=== PATIENT | female | born 1940 | race Caucasian/White ===

== ENCOUNTER 2022-08-28 08:10 | Inpatient (IN) ==
[2022-08-28] MEDS ORDERED: Morphine 4 MG/ML VIAL (1 ml) IV ONE (09:29)
[2022-08-28] MEDS ORDERED: Lactated Ringers 1000 ml BAG 1,000 ML IV ONE (09:29)
[2022-08-28] MEDS ORDERED: Ondansetron 4 mg VIAL 2 MG/ML 2 ml VIAL IV ONE (09:29)
[2022-08-28] MEDS ORDERED: Iodixanol (CONTRAST) 320 MG/ML 100 ML SDV IV ONE (10:31)
[2022-08-28 11:20] LABS: ABS Lymphocytes 0.9 10^3/ul (1.0-4.8); ABS Monocytes 0.8 10^3/ul (0-0.8); ABS Neutrophils 6.4 10^3/ul (1.5-7.7); Eosinophil % 0.4 %; Hematocrit 33 % (35-47); Hemoglobin 10.9 g/dL (12.0-16.0); Lymphocyte % 11.5 %; Mean Corpuscular HGB Conc 33 g/dL (31-36); Mean Corpuscular Hemoglobin 31 pg (27-31); Mean Corpuscular Volume 93 fL (80-97); Mean Platelet Volume 7.5 fL (7.4-10.4); Platelet Count 213 10^3/uL (150-450); Red Blood Count 3.52 10^6 /uL (3.70-4.87); Red Cell Distribution Width 14 % (10-15); White Blood Count 8.1 10^3/uL (3.5-10.8)
[2022-08-28 11:32] LABS: INR 1.17 (0.88-1.18)
[2022-08-28 12:11] LABS: Albumin 3.6 g/dL (3.2-5.2); Albumin/Globulin Ratio 1.6 (1-3); Calcium 8.9 mg/dL (8.6-10.3); Globulin 2.2 g/dL (2-4); Potassium 4.2 mmol/L (3.5-5.0); Total Bilirubin 0.5 mg/dL (0.2-1.0); Total Protein 5.8 g/dL (6.4-8.9); eGFR CKD-EPI 84.5 (>60)
[2022-08-28 13:41] LABS: C Reactive Protein 17.09 mg/L (<8.01); HDL Cholesterol 60.9 mg/dL
[2022-08-28] MEDS ORDERED: Albuterol HFA INHALER 8 gm MDI INH PRN (13:50)
[2022-08-28] MEDS ORDERED: oxyCODONE/Acetamin 5/325 mg TAB PO PRN (13:50)
[2022-08-28 13:51] LABS: TSH Ultra Thyroid Stim Horm 1.59 mcIU/mL (0.34-5.60)
[2022-08-28] MEDS ORDERED: HYDROmorphone 1 MG/1 ML SYRINGE IV SLOW PU ONE (13:51)
[2022-08-28] MEDS ORDERED: DULoxetine DR 60 mg CAP PO SCH (14:00)
[2022-08-28] MEDS ORDERED: Lorazepam PYXIS KEY PRN (14:08)
[2022-08-28] MEDS ORDERED: LORazepam 2 mg VIAL 1 ml IV PUSH ONE (14:08)
[2022-08-28] MEDS ORDERED: Furosemide 20 mg/2 ml IV VIAL IV SLOW PU ONE (15:36)
[2022-08-28] MEDS ORDERED: fentaNYL 100 mcg/2 ml 50 MCG/ML VIAL IV SLOW PU PRN ×2 (15:39→20:36)
[2022-08-28 16:32] LABS: PCO2 Arterial 55 mmHg (35-45); PO2 Arterial 142 mmHg (80-100)
[2022-08-28 17:30] LABS: Activated Partial Thrombo Time 29.8 seconds (26.0-38.0)
[2022-08-28] MEDS ORDERED: Succinylcholine 200 mg VIAL 20 mg/ml 10 ml VIAL (200 mg) ONE (17:48)
[2022-08-28] MEDS ORDERED: Rocuronium 50 mg VIAL 10 mg/ml 5 ml VIAL (50 mg) ONE (17:48)
[2022-08-28] MEDS ORDERED: Norepinephrine 16MCG/ML BAGD5W 4,000 MCG/250 ML BAG IV ONE (17:48)
[2022-08-28] MEDS ORDERED: Propofol 10 mg/ml 100 ML BTL 100 ML ONE (17:49)
[2022-08-28] MEDS ORDERED: Midazolam 10 mg/10 ml VIAL 1 mg/ml 10 ml VIAL (10 mg) ONE (18:24)
[2022-08-28] MEDS ORDERED: Etomidate 40 mg/20 ml (2 MG/ML) 20 ml VIAL (40 mg) ONE (18:24)
[2022-08-28] MEDS ORDERED: fentaNYL 250 mcg/5 ml 50 MCG/ML 5 ml VIAL (250 MCG) ONE (18:24)
[2022-08-28] MEDS: Propofol 10 mg/ml 100 ML BTL 100 ML IV SCH ×2 (18:35→21:48)
[2022-08-28] MEDS: Norepinephrine 16MCG/ML BAGD5W 4,000 MCG/250 ML BAG IV SCH (18:35)
[2022-08-28] MEDS ORDERED: Piperacillin/Tazobac ADVAN 3.375 GM in NS 0.9% 100 ml BAG 100 ML IV ONE (18:50)
[2022-08-28] MEDS ORDERED: Zosyn per Pharmacy NOTE FOLLOW UP SCH (19:00)
[2022-08-28] MEDS: Midazolam 2 mg/2 ml VIAL 1 mg/ml 2 ml VIAL (2 mg) IV SLOW PU PRN ×2 (19:33→23:59)
[2022-08-28 20:28] LABS: Hematocrit 33 % (35-47); Hemoglobin 10.4 g/dL (12.0-16.0)
[2022-08-28] MEDS ORDERED: fentaNYL 100 mcg/2 ml 50 MCG/ML VIAL ONE (21:01)
[2022-08-28] MEDS ORDERED: Heparin 5000 UNITS/ML 1 mL VIAL SUBCUT SCH (22:00)
[2022-08-28 22:07] LABS: ABS Eosinophils 0.1 10^3/ul (0-0.6); ABS Lymphocytes 1.1 10^3/ul (1.0-4.8); ABS Monocytes 0.8 10^3/ul (0-0.8); ABS Neutrophils 5.5 10^3/ul (1.5-7.7); Hematocrit 32 % (35-47); Hemoglobin 10.3 g/dL (12.0-16.0); Lymphocyte % 14.8 %; Mean Corpuscular HGB Conc 32 g/dL (31-36); Mean Corpuscular Hemoglobin 31 pg (27-31); Mean Corpuscular Volume 96 fL (80-97); Mean Platelet Volume 7.7 fL (7.4-10.4); Platelet Count 196 10^3/uL (150-450); Red Blood Count 3.34 10^6 /uL (3.70-4.87); Red Cell Distribution Width 15 % (10-15); White Blood Count 7.5 10^3/uL (3.5-10.8)
[2022-08-28 22:15] LABS: Activated Partial Thrombo Time 27.7 seconds (26.0-38.0); INR 1.17 (0.88-1.18)
[2022-08-28 22:33] LABS: Urine Benzodiazepine Screen Presumptive Positive (None Detect); Urine Cannabinoids Screen Presumptive Positive (None Detect); Urine Opiates Screen Presumptive Positive (None Detect)
[2022-08-28 22:44] LABS: eGFR CKD-EPI 45.3 (>60)
[2022-08-28] MEDS: fentaNYL INFUSION 50 mcg/mL VL 2,500 MCG/50 ML VIAL IV SCH (23:04)
[2022-08-28] MEDS: Heparin 5000 UNITS/ML 1 mL VIAL SUBCUT SCH (23:09)
[2022-08-28 23:10] LABS: PCO2 Arterial 51 mmHg (35-45); PO2 Arterial 104 mmHg (80-100)
[2022-08-28] MEDS ORDERED: Midazolam 2 mg/2 ml VIAL 1 mg/ml 2 ml VIAL (2 mg) ONE (23:58)
[2022-08-29] MEDS: Propofol 10 mg/ml 100 ML BTL 100 ML IV SCH ×7 (00:20→22:36)
[2022-08-29] MEDS: ZOSYN 3.375 GM Q8H per EXTENDED INFUSION IV SCH ×4 (00:20→23:43)
[2022-08-29] MEDS: Norepinephrine 16MCG/ML BAGD5W 4,000 MCG/250 ML BAG IV SCH (00:43)
[2022-08-29 04:57] LABS: ABS Eosinophils 0.2 10^3/ul (0-0.6); ABS Lymphocytes 1.3 10^3/ul (1.0-4.8); ABS Monocytes 0.7 10^3/ul (0-0.8); ABS Neutrophils 4.4 10^3/ul (1.5-7.7); Eosinophil % 2.9 %; Hematocrit 31 % (35-47); Hemoglobin 9.9 g/dL (12.0-16.0); Lymphocyte % 19.4 %; Mean Corpuscular HGB Conc 32 g/dL (31-36); Mean Corpuscular Hemoglobin 31 pg (27-31); Mean Corpuscular Volume 96 fL (80-97); Mean Platelet Volume 7.9 fL (7.4-10.4); Platelet Count 179 10^3/uL (150-450); Red Blood Count 3.22 10^6 /uL (3.70-4.87); Red Cell Distribution Width 15 % (10-15); White Blood Count 6.5 10^3/uL (3.5-10.8)
[2022-08-29 05:20] LABS: Urine Appearance Cloudy; Urine Bilirubin 1+ (Small) (Negative); Urine Blood Trace (Intact) (Negative); Urine Color Yellow; Urine Glucose Negative (Negative); Urine Ketones Negative (Negative); Urine Nitrite Negative (Negative); Urine Protein Trace (Negative); Urine Specific Gravity 1.025 (1.005-1.030); Urine Urobilinogen 1.0 (Negative) (Negative); Urine pH 5.5 (5.0-9.0)
[2022-08-29 05:28] LABS: Urine Bacteria 1+ (Absent); Urine Red Blood Cell 3+(>10/hpf) (Absent); Urine Squamous Epithelial Cell Present (Absent); Urine White Blood Cell 3+(>20/hpf) (Absent)
[2022-08-29 05:42] LABS: Calcium 8.6 mg/dL (8.6-10.3); Phosphorus 3.8 mg/dL (2.5-5.0); Potassium 3.5 mmol/L (3.5-5.0); eGFR CKD-EPI 49.7 (>60)
[2022-08-29] MEDS: Heparin 5000 UNITS/ML 1 mL VIAL SUBCUT SCH ×3 (05:44→21:05)
[2022-08-29] MEDS: Chlorhexidine MOUTHWASH 0.12% 15 ML UDC TOPICAL SCH ×5 (05:44→21:05)
[2022-08-29] MEDS: Pantoprazole VIAL 40 MG VIAL IV SCH (08:09)
[2022-08-29 10:06] LABS: Ferritin 14.6 ng/mL (11-307)
[2022-08-29 23:42] LABS: Calcium 8.4 mg/dL (8.6-10.3); Potassium 3.9 mmol/L (3.5-5.0); eGFR CKD-EPI 59.8 (>60)
[2022-08-30] MEDS: Chlorhexidine MOUTHWASH 0.12% 15 ML UDC TOPICAL SCH ×6 (02:18→22:21)
[2022-08-30] MEDS: Propofol 10 mg/ml 100 ML BTL 100 ML IV SCH ×5 (03:12→19:48)
[2022-08-30 03:45] LABS: ABS Eosinophils 0.3 10^3/ul (0-0.6); ABS Monocytes 0.9 10^3/ul (0-0.8); Eosinophil % 3.2 %; Hematocrit 32 % (35-47); Hemoglobin 10.5 g/dL (12.0-16.0); Lymphocyte % 12.8 %; Mean Corpuscular HGB Conc 33 g/dL (31-36); Mean Corpuscular Hemoglobin 31 pg (27-31); Mean Corpuscular Volume 94 fL (80-97); Mean Platelet Volume 7.5 fL (7.4-10.4); Platelet Count 168 10^3/uL (150-450); Red Blood Count 3.44 10^6 /uL (3.70-4.87); Red Cell Distribution Width 15 % (10-15); White Blood Count 8.2 10^3/uL (3.5-10.8)
[2022-08-30 04:19] LABS: Calcium 8.3 mg/dL (8.6-10.3); Potassium 3.5 mmol/L (3.5-5.0); eGFR CKD-EPI 58.3 (>60)
[2022-08-30] MEDS: Heparin 5000 UNITS/ML 1 mL VIAL SUBCUT SCH ×2 (05:06→14:27)
[2022-08-30] MEDS ORDERED: KCL 20 MEQ/100 ML IVPREMIX 20 MEQ/100 ML BAG ONE (07:15)
[2022-08-30] MEDS: Pantoprazole VIAL 40 MG VIAL IV SCH (07:19)
[2022-08-30] MEDS: KCL 20 MEQ/100 ML IVPREMIX 20 MEQ/100 ML BAG IV SCH ×3 (07:20→11:49)
[2022-08-30] MEDS: ZOSYN 3.375 GM Q8H per EXTENDED INFUSION IV SCH ×3 (07:24→23:59)
[2022-08-30] MEDS ORDERED: Lactated Ringers 1000 ml BAG 1,000 ML IV ONE (07:56)
[2022-08-30] MEDS ORDERED: Furosemide 40 mg/4 ml IV VIAL IV ONE (12:24)
[2022-08-30] MEDS: Lactated Ringers 1000 ml BAG 1,000 ML IV SCH (13:27)
[2022-08-30 16:28] LABS: Urine Appearance Clear; Urine Bilirubin Negative (Negative); Urine Blood Trace (Intact) (Negative); Urine Color Yellow; Urine Glucose Negative (Negative); Urine Ketones Negative (Negative); Urine Nitrite Negative (Negative); Urine Protein Negative (Negative); Urine Specific Gravity 1.025 (1.005-1.030); Urine Urobilinogen 1.0 (Negative) (Negative); Urine pH 5.5 (5.0-9.0)
[2022-08-30 16:37] LABS: Urine Bacteria 1+ (Absent); Urine Red Blood Cell 3+(>10/hpf) (Absent); Urine Squamous Epithelial Cell Present (Absent); Urine White Blood Cell 1+(6-10/hpf) (Absent)
[2022-08-30] MEDS: Enoxaparin 100 MG/ML SYR SUBCUT SCH (16:52)
[2022-08-31] MEDS: Propofol 10 mg/ml 100 ML BTL 100 ML IV SCH ×4 (00:30→23:49)
[2022-08-31] MEDS: Chlorhexidine MOUTHWASH 0.12% 15 ML UDC TOPICAL SCH ×6 (03:19→21:33)
[2022-08-31 03:41] LABS: ABS Eosinophils 0.2 10^3/ul (0-0.6); ABS Monocytes 0.8 10^3/ul (0-0.8); ABS Neutrophils 5.1 10^3/ul (1.5-7.7); Eosinophil % 3.2 %; Hematocrit 32 % (35-47); Hemoglobin 10.4 g/dL (12.0-16.0); Mean Corpuscular HGB Conc 32 g/dL (31-36); Mean Corpuscular Hemoglobin 31 pg (27-31); Mean Corpuscular Volume 94 fL (80-97); Mean Platelet Volume 7.3 fL (7.4-10.4); Platelet Count 165 10^3/uL (150-450); Red Blood Count 3.41 10^6 /uL (3.70-4.87); Red Cell Distribution Width 15 % (10-15); White Blood Count 7.2 10^3/uL (3.5-10.8)
[2022-08-31 04:12] LABS: Calcium 8.1 mg/dL (8.6-10.3); Magnesium 1.9 mg/dL (1.9-2.7); Phosphorus 3.7 mg/dL (2.5-5.0); Potassium 3.7 mmol/L (3.5-5.0); eGFR CKD-EPI 69.2 (>60)
[2022-08-31] MEDS: Enoxaparin 100 MG/ML SYR SUBCUT SCH (04:55)
[2022-08-31] MEDS: fentaNYL INFUSION 50 mcg/mL VL 2,500 MCG/50 ML VIAL IV SCH ×2 (06:26→19:11)
[2022-08-31] MEDS ORDERED: KCL 20 MEQ/100 ML IVPREMIX 20 MEQ/100 ML BAG IV ONE (06:34)
[2022-08-31] MEDS: Lactated Ringers 1000 ml BAG 1,000 ML IV SCH (07:29)
[2022-08-31] MEDS: ZOSYN 3.375 GM Q8H per EXTENDED INFUSION IV SCH ×3 (07:55→23:55)
[2022-08-31] MEDS ORDERED: Sulfur Hexaflouride MICROSPHR 25 MG VIAL ONE (08:26)
[2022-08-31] MEDS: Pantoprazole VIAL 40 MG VIAL IV SCH (09:41)
[2022-09-01] MEDS: Chlorhexidine MOUTHWASH 0.12% 15 ML UDC TOPICAL SCH ×7 (02:06→22:02)
[2022-09-01 04:40] LABS: ABS Eosinophils 0.3 10^3/ul (0-0.6); ABS Lymphocytes 1.1 10^3/ul (1.0-4.8); ABS Monocytes 0.9 10^3/ul (0-0.8); ABS Neutrophils 5.2 10^3/ul (1.5-7.7); Eosinophil % 3.8 %; Hematocrit 34 % (35-47); Hemoglobin 10.9 g/dL (12.0-16.0); Lymphocyte % 14.4 %; Mean Corpuscular HGB Conc 32 g/dL (31-36); Mean Corpuscular Hemoglobin 30 pg (27-31); Mean Corpuscular Volume 94 fL (80-97); Mean Platelet Volume 7.5 fL (7.4-10.4); Platelet Count 190 10^3/uL (150-450); Red Blood Count 3.59 10^6 /uL (3.70-4.87); Red Cell Distribution Width 15 % (10-15); White Blood Count 7.5 10^3/uL (3.5-10.8)
[2022-09-01 05:49] LABS: Calcium 8.6 mg/dL (8.6-10.3); Magnesium 2.1 mg/dL (1.9-2.7); Phosphorus 2.7 mg/dL (2.5-5.0)
[2022-09-01] MEDS: Pantoprazole VIAL 40 MG VIAL IV SCH (07:53)
[2022-09-01] MEDS: ZOSYN 3.375 GM Q8H per EXTENDED INFUSION IV SCH (07:53)
[2022-09-01] MEDS: Propofol 10 mg/ml 100 ML BTL 100 ML IV SCH (09:05)
[2022-09-01] MEDS: Cefepime 2 GM in Dextrose 2 GM/50 ML BAG IV SCH ×2 (10:52→22:02)
[2022-09-01] MEDS: fentaNYL PATCH 12 MCG/HR 1 PATCH TRANSDERM SCH (11:37)
[2022-09-01] MEDS ORDERED: Furosemide 40 mg/4 ml IV VIAL IV SLOW PU ONE (12:03)
[2022-09-01] MEDS: Midazolam 2 mg/2 ml VIAL 1 mg/ml 2 ml VIAL (2 mg) IV SLOW PU PRN ×2 (14:04→22:24)
[2022-09-01] MEDS: fentaNYL Patch Check Q Shift NOTE FOLLOW UP SCH (22:03)
[2022-09-02] MEDS: Chlorhexidine MOUTHWASH 0.12% 15 ML UDC TOPICAL SCH ×3 (01:04→08:44)
[2022-09-02 04:51] LABS: ABS Eosinophils 0.2 10^3/ul (0-0.6); ABS Monocytes 0.9 10^3/ul (0-0.8); ABS Neutrophils 5.7 10^3/ul (1.5-7.7); Eosinophil % 2.5 %; Hematocrit 33 % (35-47); Hemoglobin 10.7 g/dL (12.0-16.0); Lymphocyte % 12.3 %; Mean Corpuscular HGB Conc 32 g/dL (31-36); Mean Corpuscular Hemoglobin 30 pg (27-31); Mean Corpuscular Volume 94 fL (80-97); Mean Platelet Volume 7.3 fL (7.4-10.4); Platelet Count 188 10^3/uL (150-450); Red Blood Count 3.56 10^6 /uL (3.70-4.87); Red Cell Distribution Width 15 % (10-15); White Blood Count 7.9 10^3/uL (3.5-10.8)
[2022-09-02] MEDS: Midazolam 2 mg/2 ml VIAL 1 mg/ml 2 ml VIAL (2 mg) IV SLOW PU PRN (05:11)
[2022-09-02 06:00] LABS: Calcium 9.1 mg/dL (8.6-10.3); Magnesium 2.1 mg/dL (1.9-2.7); Phosphorus 2.4 mg/dL (2.5-5.0); Potassium 3.5 mmol/L (3.5-5.0); eGFR CKD-EPI 94.3 (>60)
[2022-09-02] MEDS ORDERED: KCL 20 MEQ/100 ML IVPREMIX 20 MEQ/100 ML BAG IV ONE (06:12)
[2022-09-02] MEDS: fentaNYL Patch Check Q Shift NOTE FOLLOW UP SCH ×2 (07:15→18:44)
[2022-09-02] MEDS: Cefepime 2 GM in Dextrose 2 GM/50 ML BAG IV SCH (08:44)
[2022-09-02] MEDS: Pantoprazole VIAL 40 MG VIAL IV SCH (08:45)
[2022-09-02] MEDS: dilTIAZem 30 MG TAB PO SCH ×3 (10:51→21:02)
[2022-09-02] MEDS ORDERED: Furosemide 40 mg/4 ml IV VIAL IV SLOW PU ONE (13:28)
[2022-09-02] MEDS ORDERED: Senna TAB 8.6 mg TAB PO PRN (15:39)
[2022-09-02] MEDS ORDERED: Magnesium Hydroxide LIQ 30 ML UDC PO PRN (15:39)
[2022-09-02] MEDS: Polyethylene Glycol 3350 17 GM PACKET PO SCH (16:18)
[2022-09-03] MEDS: dilTIAZem 30 MG TAB PO SCH ×4 (03:37→19:48)
[2022-09-03] MEDS: Labetalol IV 5 MG/ML 20 ml VIAL IV PUSH PRN (05:12)
[2022-09-03 05:15] LABS: ABS Eosinophils 0.3 10^3/ul (0-0.6); Eosinophil % 3.9 %; Hematocrit 37 % (35-47); Hemoglobin 11.5 g/dL (12.0-16.0); Lymphocyte % 11.6 %; Mean Corpuscular HGB Conc 32 g/dL (31-36); Mean Corpuscular Hemoglobin 30 pg (27-31); Mean Corpuscular Volume 95 fL (80-97); Mean Platelet Volume 7.2 fL (7.4-10.4); Platelet Count 197 10^3/uL (150-450); Red Blood Count 3.83 10^6 /uL (3.70-4.87); Red Cell Distribution Width 15 % (10-15); White Blood Count 8.4 10^3/uL (3.5-10.8)
[2022-09-03 05:58] LABS: Calcium 9.5 mg/dL (8.6-10.3); Magnesium 2.1 mg/dL (1.9-2.7); Phosphorus 2.7 mg/dL (2.5-5.0); Potassium 3.5 mmol/L (3.5-5.0); eGFR CKD-EPI 94.3 (>60)
[2022-09-03] MEDS: fentaNYL Patch Check Q Shift NOTE FOLLOW UP SCH ×2 (06:57→18:51)
[2022-09-03] MEDS: KCL 20 MEQ/100 ML IVPREMIX 20 MEQ/100 ML BAG IV SCH ×2 (07:27→09:30)
[2022-09-03] MEDS: Polyethylene Glycol 3350 17 GM PACKET PO SCH (08:24)
[2022-09-03] MEDS: Pantoprazole VIAL 40 MG VIAL IV SCH (08:24)
[2022-09-03] MEDS ORDERED: FERRIC GLUCONATE IV PUSH SCH (09:00)
[2022-09-03] MEDS ORDERED: Ferric Gluconate IV 250 MG in NS 0.9% 250 ml 200 ML IVPB SCH (09:00)
[2022-09-03] MEDS ORDERED: Morphine 4 MG/ML VIAL (1 ml) IV PRN (13:14)
[2022-09-03] MEDS: Morphine 2 MG/ML SYRINGE IV PRN (13:35)
[2022-09-03] MEDS: oxyCODONE/Acetamin 5/325 mg TAB PO PRN (16:13)
[2022-09-04] MEDS: dilTIAZem 30 MG TAB PO SCH ×4 (03:44→21:07)
[2022-09-04] MEDS: oxyCODONE/Acetamin 5/325 mg TAB PO PRN (03:56)
[2022-09-04 04:10] LABS: ABS Eosinophils 0.2 10^3/ul (0-0.6); ABS Lymphocytes 1.1 10^3/ul (1.0-4.8); ABS Monocytes 1.2 10^3/ul (0-0.8); ABS Neutrophils 6.5 10^3/ul (1.5-7.7); Eosinophil % 2.5 %; Hematocrit 36 % (35-47); Hemoglobin 11.4 g/dL (12.0-16.0); Lymphocyte % 11.7 %; Mean Corpuscular HGB Conc 32 g/dL (31-36); Mean Corpuscular Hemoglobin 31 pg (27-31); Mean Corpuscular Volume 96 fL (80-97); Mean Platelet Volume 7.5 fL (7.4-10.4); Nucleated Red Blood Cells % 0.1; Platelet Count 212 10^3/uL (150-450); Red Blood Count 3.75 10^6 /uL (3.70-4.87); Red Cell Distribution Width 15 % (10-15)
[2022-09-04 04:52] LABS: Calcium 9.1 mg/dL (8.6-10.3); Magnesium 2.1 mg/dL (1.9-2.7); Phosphorus 2.9 mg/dL (2.5-5.0); Potassium 4.1 mmol/L (3.5-5.0)
[2022-09-04] MEDS: Labetalol IV 5 MG/ML 20 ml VIAL IV PUSH PRN (05:20)
[2022-09-04] MEDS: fentaNYL Patch Check Q Shift NOTE FOLLOW UP SCH ×2 (06:50→18:51)
[2022-09-04] MEDS: Pantoprazole VIAL 40 MG VIAL IV SCH (09:16)
[2022-09-04] MEDS: DULoxetine DR 60 mg CAP PO SCH (09:40)
[2022-09-04] MEDS: Polyethylene Glycol 3350 17 GM PACKET PO SCH (09:40)
[2022-09-04] MEDS: fentaNYL PATCH 12 MCG/HR 1 PATCH TRANSDERM SCH (11:37)
[2022-09-04] MEDS: Morphine 2 MG/ML SYRINGE IV PRN (13:20)
[2022-09-05] MEDS: Morphine 2 MG/ML SYRINGE IV PRN (00:07)
[2022-09-05] MEDS: dilTIAZem 30 MG TAB PO SCH ×4 (03:36→22:06)
[2022-09-05 06:18] LABS: ABS Eosinophils 0.2 10^3/ul (0-0.6); ABS Lymphocytes 1.2 10^3/ul (1.0-4.8); ABS Monocytes 1.2 10^3/ul (0-0.8); ABS Neutrophils 6.9 10^3/ul (1.5-7.7); Eosinophil % 1.7 %; Hematocrit 38 % (35-47); Hemoglobin 12.3 g/dL (12.0-16.0); Lymphocyte % 12.3 %; Mean Corpuscular HGB Conc 32 g/dL (31-36); Mean Corpuscular Hemoglobin 31 pg (27-31); Mean Corpuscular Volume 96 fL (80-97); Mean Platelet Volume 7.6 fL (7.4-10.4); Platelet Count 232 10^3/uL (150-450); Red Blood Count 3.94 10^6 /uL (3.70-4.87); Red Cell Distribution Width 15 % (10-15); White Blood Count 9.5 10^3/uL (3.5-10.8)
[2022-09-05 07:02] LABS: Calcium 9.1 mg/dL (8.6-10.3); Magnesium 2.1 mg/dL (1.9-2.7); Phosphorus 2.9 mg/dL (2.5-5.0); eGFR CKD-EPI 95.7 (>60)
[2022-09-05] MEDS: DULoxetine DR 60 mg CAP PO SCH (10:39)
[2022-09-05] MEDS: Polyethylene Glycol 3350 17 GM PACKET PO SCH (10:39)
[2022-09-05] MEDS: Ferric Gluconate IV 250 MG in NS 0.9% 250 ml 200 ML IVPB SCH (12:39)
[2022-09-05] MEDS ORDERED: Iohexol 350 (CONTRAST) 500 ML MDV IV ONE (15:40)
[2022-09-05] MEDS: oxyCODONE/Acetamin 5/325 mg TAB PO PRN (22:07)
[2022-09-06] MEDS: dilTIAZem 30 MG TAB PO SCH ×4 (03:56→21:19)
[2022-09-06 07:02] LABS: ABS Eosinophils 0.2 10^3/ul (0-0.6); ABS Lymphocytes 1.3 10^3/ul (1.0-4.8); ABS Monocytes 1.4 10^3/ul (0-0.8); ABS Neutrophils 7.5 10^3/ul (1.5-7.7); Hematocrit 38 % (35-47); Hemoglobin 12.5 g/dL (12.0-16.0); Lymphocyte % 12.4 %; Mean Corpuscular HGB Conc 33 g/dL (31-36); Mean Corpuscular Hemoglobin 31 pg (27-31); Mean Corpuscular Volume 96 fL (80-97); Mean Platelet Volume 7.7 fL (7.4-10.4); Platelet Count 255 10^3/uL (150-450); Red Cell Distribution Width 15 % (10-15); White Blood Count 10.4 10^3/uL (3.5-10.8)
[2022-09-06 07:42] LABS: Calcium 9.7 mg/dL (8.6-10.3); Potassium 3.7 mmol/L (3.5-5.0)
[2022-09-06] MEDS: DULoxetine DR 60 mg CAP PO SCH (09:18)
[2022-09-06] MEDS: Polyethylene Glycol 3350 17 GM PACKET PO SCH (11:12)
[2022-09-06 11:20] LABS: PCO2 Arterial 55 mmHg (35-45); PO2 Arterial 135 mmHg (80-100)
[2022-09-06] MEDS: Ferric Gluconate IV 250 MG in NS 0.9% 250 ml 200 ML IVPB SCH (11:28)
[2022-09-06] MEDS ORDERED: acetaZOLAMIDE IV 500 MG in NS 0.9% 50 ML 50 ML IVPB ONE (14:00)
[2022-09-06] MEDS: oxyCODONE/Acetamin 5/325 mg TAB PO PRN (21:24)
[2022-09-07] MEDS: dilTIAZem 30 MG TAB PO SCH ×4 (03:48→20:40)
[2022-09-07] MEDS ORDERED: Alteplase (CATHFLO) 2 MG VIAL IV PRN (04:50)
[2022-09-07 07:09] LABS: Calcium 9.4 mg/dL (8.6-10.3); Potassium 3.1 mmol/L (3.5-5.0); eGFR CKD-EPI 88.3 (>60)
[2022-09-07] MEDS: Potassium EFFERVES 25 meq TAB PO ONE ×2 (11:16→11:21)
[2022-09-07] MEDS: DULoxetine DR 60 mg CAP PO SCH (11:17)
[2022-09-07] MEDS: Polyethylene Glycol 3350 17 GM PACKET PO SCH (11:19)
[2022-09-07] MEDS: Potassium Chlor 10 meq TAB PO ONE ×2 (13:08→14:52)
[2022-09-07] MEDS: oxyCODONE/Acetamin 5/325 mg TAB PO PRN ×2 (14:48→20:40)
[2022-09-07] MEDS: Ferric Gluconate IV 250 MG in NS 0.9% 250 ml 200 ML IVPB SCH (15:51)
[2022-09-07] MEDS ORDERED: Potassium Chlor 10 meq TAB PO ONE (17:00)
[2022-09-07] MEDS ORDERED: acetaZOLAMIDE IV 500 MG in NS 0.9% 50 ML 50 ML IVPB SCH (21:00)
[2022-09-07] MEDS ORDERED: acetaZOLAMIDE IV 500 MG in NS 0.9% 50 ML 50 ML IVPB ONE (21:00)
[2022-09-08] MEDS: oxyCODONE/Acetamin 5/325 mg TAB PO PRN ×5 (01:55→22:02)
[2022-09-08] MEDS: dilTIAZem 30 MG TAB PO SCH ×4 (03:26→21:01)
[2022-09-08 06:33] LABS: ABS Eosinophils 0.3 10^3/ul (0-0.6); ABS Lymphocytes 1.3 10^3/ul (1.0-4.8); ABS Neutrophils 5.3 10^3/ul (1.5-7.7); Eosinophil % 4.2 %; Hematocrit 42 % (35-47); Hemoglobin 12.5 g/dL (12.0-16.0); Lymphocyte % 16.6 %; Mean Corpuscular HGB Conc 30 g/dL (31-36); Mean Corpuscular Hemoglobin 29 pg (27-31); Mean Corpuscular Volume 98 fL (80-97); Mean Platelet Volume 8.1 fL (7.4-10.4); Nucleated Red Blood Cells % 0.1; Platelet Count 217 10^3/uL (150-450); Red Blood Count 4.27 10^6 /uL (3.70-4.87); Red Cell Distribution Width 15 % (10-15)
[2022-09-08 06:50] LABS: CO2 Carbon Dioxide 27 mmol/L (22-32); Calcium 9.5 mg/dL (8.6-10.3); Chloride 99 mmol/L (101-111); Sodium 135 mmol/L (135-145)
[2022-09-08 06:56] LABS: Anion Gap 9 mmol/L (2-11); Blood Urea Nitrogen 25 mg/dL (6-24); Glucose 96 mg/dL (70-100); eGFR CKD-EPI 69.2 (>60)
[2022-09-08 08:36] LABS: Anion Gap 8 mmol/L (2-11); CO2 Carbon Dioxide 31 mmol/L (22-32); Calcium 9.3 mg/dL (8.6-10.3); Chloride 99 mmol/L (101-111); Magnesium 2.1 mg/dL (1.9-2.7); Potassium 3.8 mmol/L (3.5-5.0); Sodium 138 mmol/L (135-145)
[2022-09-08] MEDS ORDERED: Potassium Chlor 10 meq TAB PO ONE (08:41)
[2022-09-08 08:42] LABS: Blood Urea Nitrogen 25 mg/dL (6-24); Glucose 100 mg/dL (70-100); eGFR CKD-EPI 65.5 (>60)
[2022-09-08 09:50] LABS: PCO2 Arterial 54 mmHg (35-45); PO2 Arterial 96 mmHg (80-100)
[2022-09-08] MEDS: Ferric Gluconate IV 250 MG in NS 0.9% 250 ml 200 ML IVPB SCH (10:37)
[2022-09-08] MEDS: DULoxetine DR 60 mg CAP PO SCH (10:37)
[2022-09-08] MEDS: Polyethylene Glycol 3350 17 GM PACKET PO SCH (10:41)
[2022-09-08 15:13] LABS: Rheumatoid Factor < 10 IU/mL (<15)
[2022-09-08] MEDS ORDERED: acetaZOLAMIDE IV 500 MG in NS 0.9% 50 ML 50 ML IVPB ONE (21:00)
[2022-09-09] MEDS: oxyCODONE/Acetamin 5/325 mg TAB PO PRN ×3 (04:17→20:29)
[2022-09-09] MEDS: dilTIAZem 30 MG TAB PO SCH ×2 (04:17→09:23)
[2022-09-09 06:07] LABS: ABS Eosinophils 0.3 10^3/ul (0-0.6); ABS Lymphocytes 1.2 10^3/ul (1.0-4.8); ABS Monocytes 0.8 10^3/ul (0-0.8); ABS Neutrophils 5.1 10^3/ul (1.5-7.7); Eosinophil % 3.8 %; Hematocrit 37 % (35-47); Hemoglobin 11.9 g/dL (12.0-16.0); Lymphocyte % 16.1 %; Mean Corpuscular HGB Conc 32 g/dL (31-36); Mean Corpuscular Hemoglobin 31 pg (27-31); Mean Corpuscular Volume 96 fL (80-97); Mean Platelet Volume 8.2 fL (7.4-10.4); Platelet Count 279 10^3/uL (150-450); Red Blood Count 3.84 10^6 /uL (3.70-4.87); Red Cell Distribution Width 15 % (10-15); White Blood Count 7.5 10^3/uL (3.5-10.8)
[2022-09-09 06:35] LABS: Albumin 3.1 g/dL (3.2-5.2); Calcium 9.5 mg/dL (8.6-10.3); Potassium 3.9 mmol/L (3.5-5.0); Total Bilirubin 0.4 mg/dL (0.2-1.0)
[2022-09-09 06:41] LABS: Albumin/Globulin Ratio 1.2 (1-3); Globulin 2.5 g/dL (2-4); Phosphorus 3.8 mg/dL (2.5-5.0); Total Protein 5.6 g/dL (6.4-8.9); eGFR CKD-EPI 73.3 (>60)
[2022-09-09] MEDS ORDERED: Lidocaine PATCH 5% PATCH TRANSDERM ONE (06:42)
[2022-09-09] MEDS: DULoxetine DR 60 mg CAP PO SCH (09:23)
[2022-09-09] MEDS: Polyethylene Glycol 3350 17 GM PACKET PO SCH (09:29)
[2022-09-10] MEDS: oxyCODONE/Acetamin 5/325 mg TAB PO PRN ×2 (05:23→11:47)
[2022-09-10] MEDS: DULoxetine DR 60 mg CAP PO SCH (09:26)
[2022-09-10] MEDS ORDERED: Furosemide 20 mg/2 ml IV VIAL IV SLOW PU ONE (09:32)
[2022-09-10] MEDS: Polyethylene Glycol 3350 17 GM PACKET PO SCH (11:48)
[2022-09-10 12:06] VITALS: BP 134/88
[2022-09-10 12:17] LABS: Cryoglobulin Negative %ppt (Negative)
== END 2022-09-10 13:00 | DRG 870 ==
LOC: ED 08:10 → EDHOLD 08:10 → ICU 08:22 → SUATTDRO 08-29 12:09 → MEDTELE 09-05 00:23
PROVIDERS: ADMIT Internal Medicine; ATTEND Internal Medicine